=== PATIENT | male | born 1950 | race Caucasian/White ===

== ENCOUNTER 2019-03-04 06:36 | Emergency (ER) | payer MEDICARE ==
[~2019-03-04] VITALS: Ht 180.3 cm; Wt 100.0 kg
[~2019-03-04 06:36] MED LIST: AMITRIPTYLIN25 MG PO; ASPIRIN CHEWABL81 MG PO; ASPIRIN EC LOW81 MG PO; ASPIRIN81 MG PO; CARVEDILOL25 MG PO; CARVEDILOL3.125 MG PO; COREG6.25 MG PO; CORLANOR5 MG PO; ENTRESTO 24-261 TAB PO; ENTRESTO 49-511 TAB PO; LASIX 40 MG40 MG/TAB PO; LOSARTAN POT25 MG PO; LOSARTAN POTASS50 MG PO; NO; ONDANSETRON4 MG PO; PREDNISONE50 MG PO; PRIMACOR INF; TRESIBA FL100 UNIT/M SC; TYLENOL 500MG TAB PO; VENTOLIN HFA IN; ZITHROMAX250 MG PO
[2019-03-04 07:16] LABS: HEMATOCRIT 43.2 % (39.0-50.0); HEMOGLOBIN 15.1 g/dl (14.0-18.0); IMMATURE GRANULOCYTES 0.8 % (0.0-5.0); MEAN CELL VOLUME 87.8 fL CALC (80.0-100.0); MEAN CORPUSCULAR HGB 30.7 pG CALC (26.0-32.0); NEUT# 11.4 thou/uL (1.82-7.42); RED BLOOD COUNT 4.92 mill/uL (4.70-6.10); RED CELL DISTRI WIDTH 12.9 % (11.5-15.5)
[2019-03-04 07:35] LABS: ALBUMIN 4.2 g/dL (3.2-5.0); ALKALINE PHOSPHATASE 66 u/l (38-126); AMYLASE 121 u/l (30-110); ANION GAP 16 (6-22 (CALC)); BUN 31 mg/dL (8-23); BUN/CREATININE RATIO 30 (12-20 (CALC)); CARBON DIOXIDE 23 mmol/l (22-30); CHLORIDE 100 mmol/l (95-108); GFR > 60 ML/MIN (>=60 (CALC)); GFR FOR AFR.AMER. > 60 ML/MIN (>=60 (CALC)); LIPASE 94 u/l (23-300); POTASSIUM 5.5 mmol/l (3.5-5.1); SGOT/AST 24 u/l (19-48); SODIUM 133 mmol/l (137-146); TOTAL PROTEIN 7.5 g/dL (6.3-8.2)
[2019-03-04 07:36] LABS: BILIRUBIN, TOTAL 1.1 mg/dL (0.0-1.4)
[2019-03-04 07:45] LABS: MYOGLOBIN 48 ng/mL (0 - 121)
[2019-03-04 07:47] LABS: ACT PARTIAL THROMBO TIME 32.4 SECONDS (20.0-32.5); D-DIMER 0.41 mg/L (0.19-0.60); INTERNATIONAL NORMALIZED RATIO 1.1 RATIO (0.7-1.3); PROTHROMBIN TIME 11.3 SECONDS (9.0-12.5)
[2019-03-04 11:20] VITALS: BP 136/84
== END 2019-03-04 11:25 | disposition left against medical advice (07) ==
LOC: ED 06:36
PROVIDERS: Family Medicine
DX: I20.9 Angina pectoris, unspecified (principal); R73.03 Prediabetes; N13.2 Hydronephrosis with renal and ureteral calculous obstruction; Z91.19 Patient's noncompliance with other medical treatment and regimen
CPT/HCPCS: Q9967

== ENCOUNTER 2019-03-04 14:01 | Emergency (ER) | payer MEDICARE ==
[~2019-03-04] VITALS: Ht 180.3 cm; Wt 99.1 kg
[2019-03-04 14:30] LABS: HEMATOCRIT 48.3 % (39.0-50.0); HEMOGLOBIN 16.7 g/dl (14.0-18.0); IMMATURE GRANULOCYTES 0.8 % (0.0-5.0); MEAN CELL VOLUME 88.5 fL CALC (80.0-100.0); MEAN CORPUSCULAR HGB 30.6 pG CALC (26.0-32.0); MEAN CORPUSCULAR HGB CONC 34.6 g/L CALC (32.0-36.0); NEUT# 16.86 thou/uL (1.82-7.42); RED BLOOD COUNT 5.46 mill/uL (4.70-6.10); RED CELL DISTRI WIDTH 13.2 % (11.5-15.5)
[2019-03-04 15:02] LABS: ALBUMIN 4.8 g/dL (3.2-5.0); ALKALINE PHOSPHATASE 74 u/l (38-126); BILIRUBIN, TOTAL 1.7 mg/dL (0.0-1.4); BUN 28 mg/dL (8-23); BUN/CREATININE RATIO 28 (12-20 (CALC)); CARBON DIOXIDE 24 mmol/l (22-30); CHLORIDE 98 mmol/l (95-108); GFR > 60 ML/MIN (>=60 (CALC)); GFR FOR AFR.AMER. > 60 ML/MIN (>=60 (CALC)); LIPASE 48 u/l (23-300); SGOT/AST 40 u/l (19-48); SODIUM 137 mmol/l (137-146); TOTAL PROTEIN 8.5 g/dL (6.3-8.2)
[2019-03-04 15:17] LABS: ANION GAP 20 (6-22 (CALC))
[2019-03-04 15:18] LABS: POTASSIUM 5.2 mmol/l (3.5-5.1)
[2019-03-04 15:45] VITALS: BP 154/76
== END 2019-03-04 15:45 | disposition short-term general hospital (02) ==
LOC: ED 14:01
PROVIDERS: Family Medicine
DX: K81.0 Acute cholecystitis (principal); E11.9 Type 2 diabetes mellitus without complications

== ENCOUNTER 2023-03-27 08:19 | Emergency (ER) | payer MEDICARE ==
[~2023-03-27] VITALS: Ht 177.8 cm; Wt 99.2 kg
[2023-03-27] VITALS (8 sets, daily range): BP systolic 130–146; BP diastolic 65–87
[2023-03-27 08:57] LABS: BASO% 0.3 % (0-3); EOS% 0.9 % (0-8); IMMATURE GRANULOCYTES 0.3 % (0.0-5.0); LYMPH% 21.4 % (15-41); MEAN CELL VOLUME 87.6 fL CALC (80.0-100.0); MEAN CORPUSCULAR HGB 28.2 pG CALC (26.0-32.0); MEAN CORPUSCULAR HGB CONC 32.2 g/dL CAL (32.0-36.0); MONO% 10.7 % (2-13); NEUT# 2.29 thou/uL (1.82-7.42); NEUT% 66.4 % (42-76); RED BLOOD COUNT 4.04 mill/uL (4.70-6.10); RED CELL DISTRI WIDTH 15.5 % (11.5-15.5)
[2023-03-27 09:05] LABS: HEMATOCRIT 35.4 % (39.0-50.0); HEMOGLOBIN 11.4 g/dl (14.0-18.0)
[2023-03-27 09:09] LABS: ALBUMIN 3.1 g/dL (3.2-5.0); ALKALINE PHOSPHATASE 80 u/l (38-126); ANION GAP 12 (6-22 (CALC)); BILIRUBIN, TOTAL 1.6 mg/dL (0.2-1.3); BUN 17 mg/dL (8-23); BUN/CREATININE RATIO 17 (12-20 (CALC)); CARBON DIOXIDE 26 mmol/l (22-30); CHLORIDE 100 mmol/l (95-108); GFR FOR AFR.AMER. > 60 ML/MIN (>=60 (CALC)); GFR OTHER RACES > 60 ML/MIN (>=60 (CALC)); POTASSIUM 4.3 mmol/l (3.5-5.1); SGOT/AST 47 u/l (19-48); SODIUM 134 mmol/l (137-146); TOTAL PROTEIN 7.7 g/dL (6.3-8.2)
[2023-03-27 09:21] LABS: INTERNATIONAL NORMALIZED RATIO 1.2 RATIO (0.7-1.3); PROTHROMBIN TIME 12.2 SECONDS (9.0-12.5)
[2023-03-27 10:10] LABS: URINE BILIRUBIN - DIPSTICK NEGATIVE (NEGATIVE); URINE BLOOD DIPSTICK SMALL (NEGATIVE); URINE COLOR YELLOW; URINE GLUCOSE - DIPSTICK NEGATIVE (NEGATIVE); URINE KETONE NEGATIVE (NEGATIVE); URINE LEUK ESTERASE NEGATIVE (NEGATIVE); URINE PROTEIN - DIPSTICK 30 mg/dL (NEG-TRACE); URINE SPECIFIC GRAVITY 1.015; URINE UROBILINOGEN - DIPSTICK >=8.0 E.U./dL (0.2)
[2023-03-27 10:14] LABS: URINE NITRITE - DIPSTICK NEGATIVE (Negative)
[2023-03-27 10:24] LABS: URINE RBC 0-2 RBC/hpf (0-5)
== END 2023-03-27 11:07 | disposition home or self-care (01) ==
LOC: ED 08:19
PROVIDERS: Family Medicine
DX: E11.649 Type 2 diabetes mellitus with hypoglycemia without coma (principal); I10 Essential (primary) hypertension; E66.9 Obesity, unspecified; Z79.4 Long term (current) use of insulin
CPT/HCPCS: Q9967

== ENCOUNTER 2023-04-23 12:02 | Inpatient (IN) | payer MEDICARE ==
[~2023-04-23] VITALS: Ht 177.8 cm; Wt 98.4 kg
[2023-04-23] VITALS (27 sets, daily range): BP systolic 89–156; BP diastolic 53–93
[2023-04-23 13:03] LABS: LIPASE 103 u/l (23-300)
[2023-04-23 13:05] LABS: ALBUMIN 2.7 g/dL (3.2-5.0); BILIRUBIN, TOTAL 2.2 mg/dL (0.2-1.3); CREATININE 1.7 mg/dL (0.7-1.3); TOTAL PROTEIN 7.7 g/dL (6.3-8.2)
[2023-04-23] MEDS ORDERED: ALDACTONE25 MG PO (13:07)
[2023-04-23 13:10] LABS: BASO% 2.9 % (0-3); HEMATOCRIT 31.6 % (39.0-50.0); HEMOGLOBIN 10.3 g/dl (14.0-18.0); IMMATURE GRANULOCYTES 0.4 % (0.0-5.0); LYMPH% 35.1 % (15-41); MEAN CELL VOLUME 83.2 fL CALC (80.0-100.0); MEAN CORPUSCULAR HGB 27.1 pG CALC (26.0-32.0); MEAN CORPUSCULAR HGB CONC 32.6 g/dL CAL (32.0-36.0); MONO% 7.5 % (2-13); NEUT# 1.29 thou/uL (1.82-7.42); NEUT% 54.1 % (42-76); RED BLOOD COUNT 3.8 mill/uL (4.70-6.10); RED CELL DISTRI WIDTH 17.8 % (11.5-15.5)
[2023-04-23 13:15] LABS: INTERNATIONAL NORMALIZED RATIO 1.2 RATIO (0.7-1.3); PROTHROMBIN TIME 12.1 SECONDS (9.0-12.5)
[2023-04-23 13:15] LABS: URINE COLOR AMBER; URINE GLUCOSE - DIPSTICK 250 mg/dL (NEGATIVE); URINE KETONE TRACE mg/dL (NEGATIVE); URINE PH 5.5 (4.5-8.0); URINE PROTEIN - DIPSTICK 100 mg/dL (NEG-TRACE); URINE SPECIFIC GRAVITY 1.015
[2023-04-23 13:16] LABS: URINE BLOOD DIPSTICK LARGE (NEGATIVE); URINE LEUK ESTERASE SMALL (NEGATIVE); URINE NITRITE - DIPSTICK NEGATIVE (Negative); URINE UROBILINOGEN - DIPSTICK >=8.0 E.U./dL (0.2)
[2023-04-23 13:18] LABS: URINE BACTERIA FEW hpf; URINE EPITHELIAL CELLS FEW EPI/hpf (0-FEW); URINE YEAST MODERATE hpf
[2023-04-24] VITALS (20 sets, daily range): BP systolic 12–133; BP diastolic 38–67
[2023-04-24 06:17] LABS: HEMOGLOBIN 8.8 g/dl (14.0-18.0); MEAN CELL VOLUME 85.9 fL CALC (80.0-100.0); MEAN CORPUSCULAR HGB CONC 31.4 g/dL CAL (32.0-36.0); RED BLOOD COUNT 3.26 mill/uL (4.70-6.10); RED CELL DISTRI WIDTH 18.2 % (11.5-15.5)
[2023-04-24 06:23] LABS: CREATININE 1.7 mg/dL (0.7-1.3)
[2023-04-24 06:34] LABS: CHOLESTEROL HDL RATIO 6.6 (<4.4 (CALC)); POTASSIUM 5.2 mmol/l (3.5-5.1)
[2023-04-24 10:48] LABS: C-REACTIVE PROTEIN 6.1 mg/dL (0-0.9)
[2023-04-25] VITALS (10 sets, daily range): BP systolic 107–140; BP diastolic 46–76
[2023-04-25 05:01] LABS: CREATININE 1.5 mg/dL (0.7-1.3); MAGNESIUM 2.1 mg/dL (1.6-2.3); POTASSIUM 4.8 mmol/l (3.5-5.1); TOTAL PROTEIN 6.4 g/dL (6.3-8.2)
[2023-04-25 05:02] LABS: ALBUMIN 2.1 g/dL (3.2-5.0); BILIRUBIN, TOTAL 1.2 mg/dL (0.2-1.3)
[2023-04-25 05:03] LABS: HEMATOCRIT 27.1 % (39.0-50.0); HEMOGLOBIN 8.7 g/dl (14.0-18.0); MEAN CORPUSCULAR HGB 27.6 pG CALC (26.0-32.0); MEAN CORPUSCULAR HGB CONC 32.1 g/dL CAL (32.0-36.0); RED BLOOD COUNT 3.15 mill/uL (4.70-6.10); RED CELL DISTRI WIDTH 18.2 % (11.5-15.5)
[2023-04-26] VITALS (10 sets, daily range): BP systolic 109–140; BP diastolic 58–71
[2023-04-26 04:57] LABS: HEMOGLOBIN 9.8 g/dl (14.0-18.0); IMMATURE GRANULOCYTES 0.5 % (0.0-5.0); LYMPH% 30.3 % (15-41); MEAN CELL VOLUME 85.4 fL CALC (80.0-100.0); MEAN CORPUSCULAR HGB CONC 31.6 g/dL CAL (32.0-36.0); MONO% 9.6 % (2-13); NEUT# 1.2 thou/uL (1.82-7.42); NEUT% 57.6 % (42-76); RED BLOOD COUNT 3.63 mill/uL (4.70-6.10); RED CELL DISTRI WIDTH 18.2 % (11.5-15.5)
[2023-04-26 05:16] LABS: ALBUMIN 2.4 g/dL (3.2-5.0); BILIRUBIN, TOTAL 1.2 mg/dL (0.2-1.3); CREATININE 1.5 mg/dL (0.7-1.3)
[2023-04-26 05:22] LABS: POTASSIUM 5.8 mmol/l (3.5-5.1)
[2023-04-27 04:00] VITALS: BP 143/69
[2023-04-27 04:49] VITALS: BP 143/69
[2023-04-27 06:40] VITALS: BP 126/65
[2023-04-27 08:18] LABS: BASO% 0.5 % (0-3); EOS% 1.5 % (0-8); HEMATOCRIT 29.3 % (39.0-50.0); HEMOGLOBIN 9.3 g/dl (14.0-18.0); LYMPH% 40.8 % (15-41); MEAN CELL VOLUME 86.2 fL CALC (80.0-100.0); MEAN CORPUSCULAR HGB 27.4 pG CALC (26.0-32.0); MEAN CORPUSCULAR HGB CONC 31.7 g/dL CAL (32.0-36.0); MONO% 7.8 % (2-13); NEUT% 48.4 % (42-76); RED BLOOD COUNT 3.4 mill/uL (4.70-6.10); RED CELL DISTRI WIDTH 18.6 % (11.5-15.5)
[2023-04-27 08:45] LABS: ALBUMIN 2.4 g/dL (3.2-5.0); BILIRUBIN, TOTAL 1.1 mg/dL (0.2-1.3); CREATININE 1.4 mg/dL (0.7-1.3); POTASSIUM 5.1 mmol/l (3.5-5.1); TOTAL PROTEIN 7.1 g/dL (6.3-8.2)
[2023-04-27 11:26] VITALS: BP 130/73
[2023-04-27 16:28] VITALS: BP 142/77
[2023-04-27 19:10] VITALS: BP 117/60
[2023-04-28] VITALS (7 sets, daily range): BP systolic 113–156; BP diastolic 55–75
[2023-04-28 05:15] LABS: BASO% 0.5 % (0-3); HEMATOCRIT 29.4 % (39.0-50.0); HEMOGLOBIN 9.4 g/dl (14.0-18.0); IMMATURE GRANULOCYTES 0.5 % (0.0-5.0); LYMPH% 36.1 % (15-41); MEAN CELL VOLUME 86.7 fL CALC (80.0-100.0); MEAN CORPUSCULAR HGB 27.7 pG CALC (26.0-32.0); MONO% 9.8 % (2-13); NEUT# 1.07 thou/uL (1.82-7.42); NEUT% 52.1 % (42-76); RED BLOOD COUNT 3.39 mill/uL (4.70-6.10); RED CELL DISTRI WIDTH 18.5 % (11.5-15.5)
[2023-04-28 05:25] LABS: ALBUMIN 2.5 g/dL (3.2-5.0); BILIRUBIN, TOTAL 1.1 mg/dL (0.2-1.3); CREATININE 1.6 mg/dL (0.7-1.3); MAGNESIUM 2.2 mg/dL (1.6-2.3); TOTAL PROTEIN 7.3 g/dL (6.3-8.2)
[2023-04-28 05:27] LABS: POTASSIUM 5.2 mmol/l (3.5-5.1)
[2023-04-29 01:40] VITALS: BP 143/75
[2023-04-29 01:45] VITALS: BP 143/75
[2023-04-29 06:02] LABS: BASO% 0.5 % (0-3); HEMATOCRIT 29.9 % (39.0-50.0); HEMOGLOBIN 9.4 g/dl (14.0-18.0); LYMPH% 42.7 % (15-41); MEAN CELL VOLUME 86.7 fL CALC (80.0-100.0); MEAN CORPUSCULAR HGB 27.2 pG CALC (26.0-32.0); MEAN CORPUSCULAR HGB CONC 31.4 g/dL CAL (32.0-36.0); MONO% 11.5 % (2-13); NEUT# 0.83 thou/uL (1.82-7.42); NEUT% 43.3 % (42-76); RED BLOOD COUNT 3.45 mill/uL (4.70-6.10); RED CELL DISTRI WIDTH 18.7 % (11.5-15.5)
[2023-04-29 06:04] LABS: ALBUMIN 2.4 g/dL (3.2-5.0); BILIRUBIN, TOTAL 1.3 mg/dL (0.2-1.3); CREATININE 1.7 mg/dL (0.7-1.3); MAGNESIUM 2.4 mg/dL (1.6-2.3); TOTAL PROTEIN 7.4 g/dL (6.3-8.2)
[2023-04-29 06:05] LABS: POTASSIUM 5.4 mmol/l (3.5-5.1)
[2023-04-29 07:23] VITALS: BP 141/70
[2023-04-29 11:26] VITALS: BP 135/68
[2023-04-29 15:36] VITALS: BP 138/68
[2023-04-29 19:28] VITALS: BP 141/74
[2023-04-30 00:13] VITALS: BP 129/69
[2023-04-30 04:17] VITALS: BP 130/75
[2023-04-30 05:49] LABS: BASO% 0.9 % (0-3); EOS% 0.9 % (0-8); HEMATOCRIT 31.9 % (39.0-50.0); HEMOGLOBIN 9.8 g/dl (14.0-18.0); IMMATURE GRANULOCYTES 0.5 % (0.0-5.0); LYMPH% 37.8 % (15-41); MEAN CELL VOLUME 87.4 fL CALC (80.0-100.0); MEAN CORPUSCULAR HGB 26.8 pG CALC (26.0-32.0); MEAN CORPUSCULAR HGB CONC 30.7 g/dL CAL (32.0-36.0); NEUT# 1.13 thou/uL (1.82-7.42); NEUT% 50.9 % (42-76); RED BLOOD COUNT 3.65 mill/uL (4.70-6.10)
[2023-04-30 05:55] LABS: ALBUMIN 2.7 g/dL (3.2-5.0); BILIRUBIN, TOTAL 1.4 mg/dL (0.2-1.3); CREATININE 1.6 mg/dL (0.7-1.3); MAGNESIUM 2.2 mg/dL (1.6-2.3)
[2023-04-30 05:57] LABS: POTASSIUM 5.7 mmol/l (3.5-5.1)
[2023-04-30 06:50] VITALS: BP 144/70
[2023-04-30 11:30] VITALS: BP 124/64
[2023-04-30 19:00] VITALS: BP 135/68
[2023-04-30 19:12] VITALS: BP 135/68
[2023-05-01 00:22] VITALS: BP 123/67
[2023-05-01 00:33] VITALS: BP 123/67
[2023-05-01 03:52] VITALS: BP 127/70
[2023-05-01 04:00] VITALS: BP 127/70
[2023-05-01 06:12] LABS: BASO% 0.6 % (0-3); EOS% 0.6 % (0-8); HEMOGLOBIN 8.8 g/dl (14.0-18.0); IMMATURE GRANULOCYTES 0.6 % (0.0-5.0); LYMPH% 54.7 % (15-41); MEAN CELL VOLUME 87.2 fL CALC (80.0-100.0); MEAN CORPUSCULAR HGB 27.4 pG CALC (26.0-32.0); MEAN CORPUSCULAR HGB CONC 31.4 g/dL CAL (32.0-36.0); MONO% 12.8 % (2-13); NEUT# 0.55 thou/uL (1.82-7.42); NEUT% 30.7 % (42-76); RED BLOOD COUNT 3.21 mill/uL (4.70-6.10); RED CELL DISTRI WIDTH 19.1 % (11.5-15.5)
[2023-05-01 06:33] LABS: ALBUMIN 2.3 g/dL (3.2-5.0); BILIRUBIN, TOTAL 1.2 mg/dL (0.2-1.3); CREATININE 1.8 mg/dL (0.7-1.3); MAGNESIUM 2.4 mg/dL (1.6-2.3); TOTAL PROTEIN 6.9 g/dL (6.3-8.2)
[2023-05-01 07:15] VITALS: BP 139/69
[2023-05-01 11:20] VITALS: BP 151/74
== END 2023-05-01 12:22 | disposition short-term general hospital (02) | DRG 314 ==
LOC: ED 12:02 → ED-I 12:46 → ED 16:06 → MS2 16:07 → ICU 04-24 14:30 → MS2 04-25 21:44
PROVIDERS: Family Medicine; Internal Medicine; Nurse Practitioner; Nurse Practitioner Family; ADMIT Internal Medicine; ATTEND Internal Medicine
DX: T82.7XXA Infection and inflammatory reaction due to other cardiac and vascular devices, implants and grafts, initial encounter (principal); I33.0 Acute and subacute infective endocarditis; B49 Unspecified mycosis; B37.49 Other urogenital candidiasis; I13.0 Hypertensive heart and chronic kidney disease with heart failure and stage 1 through stage 4 chronic kidney disease, or unspecified chronic kidney disease; D61.818 Other pancytopenia; N13.2 Hydronephrosis with renal and ureteral calculous obstruction; N17.9 Acute kidney failure, unspecified; I50.9 Heart failure, unspecified; E11.22 Type 2 diabetes mellitus with diabetic chronic kidney disease; N18.9 Chronic kidney disease, unspecified; E87.5 Hyperkalemia; I25.10 Atherosclerotic heart disease of native coronary artery without angina pectoris; R16.1 Splenomegaly, not elsewhere classified; N62 Hypertrophy of breast; Y83.1 Surgical operation with implant of artificial internal device as the cause of abnormal reaction of the patient, or of later complication, without mention of misadventure at the time of the procedure; Z20.822 Contact with and (suspected) exposure to COVID-19; Z95.810 Presence of automatic (implantable) cardiac defibrillator
CPT/HCPCS: J2248; Q9967